=== PATIENT | female | born 1960 | race Hispanic/Latino ===

== ENCOUNTER 2017-04-16 06:40 | Emergency (ER) | payer BC ==
[2017-04-16 06:42] VITALS: BMI 23.1
[2017-04-16 06:56] VITALS: TEMP 97.5
[2017-04-16] MEDS ORDERED: Sodium Chloride 0.9% 1,000 ML IV STA (07:16)
[2017-04-16 07:52] LABS: BASO # 0.1 K/uL (0.0-0.2); EOS # 0.1 K/uL (0.0-0.7); EOS % 0.8 % (0.0-4.0); HEMATOCRIT 39.8 % (34.0-47.0); LYMPH # 3.1 K/uL (1.0-4.3); LYMPH % 40.4 % (20.0-40.0); MEAN CELL VOLUME 99.1 fl (81.0-99.0); MEAN CORPUSCULAR HEMOGLOBIN 32.6 pg (27.0-31.0); MEAN CORPUSCULAR HGB CONC 32.8 g/dL (33.0-37.0); MONO # 0.5 K/uL (0.0-0.8); MONO % 6.3 % (0.0-10.0); NEUT # 3.9 K/uL (1.8-7.0); NEUT % 51.5 % (50.0-75.0); NRBC % 0.1 % (0.0-0.0); WHITE BLOOD COUNT 7.6 K/uL (4.8-10.8)
--- NOTE | 2017-04-16 08:11 | ED PDOC ---
Hyperglycemia/Hypoglycemia Time Seen by Provider: 04/16/17 07:14 Chief Complaint (Nursing): High Blood Sugar Chief Complaint (Provider): High Blood Sugar History Per: Patient History/Exam Limitations: no limitations Onset/Duration Of Symptoms: Days (x1) Current Symptoms Are (Timing): Still Present Current Diabetic Medications: Insulin Associated Infectious Symptoms: Nausea. denies: Sore Throat, Vomiting, Diarrhea , Other (Chest pain, headache, fever) : The patient does not have any of the infectious symptoms listed except for those marked. Additional Complaint(s): Steffanie Puri is a 56 year old female, with a past medical history of diabetes , who presents to the emergency department complaining of high blood sugar associated with nausea onset since this morning. Patient states she took her medication last night but denies taking medication this morning since she usually waits to have a meal at work before taking it. She reports not feeling well this morning. She states her mouth was bitter and felt palpitations which prompted her visit to the ER. She denies any sore throat, fever, blood in urin, nausea, vomit, diarrhea, SOB, chest pain or headache. No further medical complaints. PMD: Ángel Jalloh Past Medical History Reviewed: Historical Data, Nursing Documentation, Vital Signs Vital Signs: Last Vital Signs Temp 97.5 F L 04/16/17 06:43 Pulse 83 04/16/17 06:43 Resp 18 04/16/17 06:43 BP 134/83 04/16/17 06:43 Pulse Ox 99 04/16/17 06:43 - Medical History PMH: Diabetes Denies: Chronic Kidney Disease - Surgical History Surgical History: Appendectomy, - Family History Family History: States: Unknown Family Hx - Social History Current smoker - smoking cessation education provided: No Alcohol: None Drugs: Denies - Home Medications Home Medications: Ambulatory Orders Medication Instructions Recorded Enalapril Maleate [Vasotec] 5 mg PO DAILY 04/16/17 Glimepiride [amaRYL] 2 mg PO BID 04/16/17 Sitagliptin Phos/Metformin HCl 1 each PO BID 04/16/17 [Janumet 50-1,000 mg Tablet] - Allergies Allergies/Adverse Reactions: Allergies Allergy/AdvReac Type Severity Reaction Status Date / Time No Known Allergies Allergy Verified 04/16/17 06:50 Review of Systems ROS Statement: Except As Marked, All Systems Reviewed And Found Negative Constitutional: Negative for: Fever ENT: Negative for: Throat Pain Cardiovascular: Positive for: Palpitations. Negative for: Chest Pain Respiratory: Negative for: Shortness of Breath Gastrointestinal: Negative for: Nausea, Vomiting, Diarrhea Genitourinary Female: Negative for: Hematuria Neurological: Negative for: Headache Physical Exam - Reviewed Nursing Documentation Reviewed: Yes Vital Signs Reviewed: Yes - Physical Exam Appears: Positive for: Well, Non-toxic, No Acute Distress Head Exam: Positive for: ATRAUMATIC, NORMAL INSPECTION, NORMOCEPHALIC Skin: Positive for: Normal Color, Warm, Dry Eye Exam: Positive for: EOMI, Normal appearance, PERRL ENT: Positive for: Normal ENT Inspection Neck: Positive for: Normal, Painless ROM, Supple Cardiovascular/Chest: Positive for: Regular Rate, Rhythm. Negative for: Murmur Respiratory: Positive for: Normal Breath Sounds. Negative for: Respiratory Distress Gastrointestinal/Abdominal: Positive for: Normal Exam, Bowel Sounds, Soft. Negative for: Tenderness, Guarding, Rebound Back: Positive for: Normal Inspection. Negative for: L CVA Tenderness, R CVA Tenderness Extremity: Positive for: Normal ROM. Negative for: Pedal Edema, Deformity, Swelling Neurologic/Psych: Positive for: Alert, Oriented. Negative for: Motor/Sensory Deficits - Laboratory Results Result Diagrams: 04/16/17 07:45 04/16/17 07:45 - ECG ECG Rhythm: Positive for: Sinus Rhythm (normal). Negative for: Nonspecific Changes Rate: 67 O2 Sat by Pulse Oximetry: 99 (RA) Pulse Ox Interpretation: Normal Medical Decision Making Medical Decision Making: Initial Impression: Hyperglycemia Initial Plan: --EKG --Basic Metabolic Panel --Urine dipstick --Chest two views (PA/LAT) [RAD] --NS IV 1,000 ml @ 1,000 mls/hr --reevaluation 0844 Chest X-Ray FINDINGS: LUNGS: No active pulmonary disease. PLEURA: No significant pleural effusion identified. No pneumothorax apparent. CARDIOVASCULAR: Normal. OSSEOUS STRUCTURES: No significant abnormalities. VISUALIZED UPPER ABDOMEN: Normal. OTHER FINDINGS: None. IMPRESSION: No active disease. Scribe Attestation: Documented by Jose Stein, acting as a scribe for Augusta Bauer MD Provider Scribe Attestation: All medical record entries made by the Scribe were at my direction and personally dictated by me. I have reviewed the chart and agree that the record accurately reflects my personal performance of the history, physical exam, medical decision making, and the department course for this patient. I have also personally directed, reviewed, and agree with the discharge instructions and disposition. 10.45a - patient stable since arrival. serum glucose concurrent with initial and followup chem sticks in the ER. Patient to be discharged with followup with Dr. Marycruz Jalloh Disposition - Clinical Impression Clinical Impression: Hyperglycemia due to type 2 diabetes mellitus - Patient ED Disposition Is Patient to be Admitted: No Doctor Will See Patient In The: Office Counseled Patient/Family Regarding: Diagnosis, Need For Followup - Disposition Referrals: Ángel Jalloh MD [Primary Care Provider] - [email or web address] (formerly [email or web address] Erin Banks [Outside] Disposition: Routine/Home Disposition Time: 10:45 Condition: STABLE Instructions: Diabetic Hyperglycemia (ED) Forms: [employer] ([place]) Print Language: BELARUSIAN - POA Present On Arrival: None
[2017-04-16 08:21] LABS: CALCIUM 8.8 mg/dL (8.4-10.2); CARBON DIOXIDE 24 mmol/L (22-30); CHLORIDE 102 mmol/L (98-107); GFR AFRICAN-AMERICAN > 60; GLUCOSE,RANDOM 223 mg/dL (65-105); SODIUM 136 mmol/l (132-148)
[2017-04-16 08:23] LABS: BLOOD UREA NITROGEN 10 mg/dl (7-17); POTASSIUM 4.2 MMOL/L (3.6-5.0)
--- NOTE | 2017-04-16 08:46 | RAD ---
HISTORY: hyperglycemia COMPARISON: No prior. TECHNIQUE: Chest PA and lateral FINDINGS: LUNGS: No active pulmonary disease. PLEURA: No significant pleural effusion identified. No pneumothorax apparent. CARDIOVASCULAR: Normal. OSSEOUS STRUCTURES: No significant abnormalities. VISUALIZED UPPER ABDOMEN: Normal. OTHER FINDINGS: None. IMPRESSION: No active disease.
[2017-04-16 11:28] VITALS: BP 129/81; PULSE 71; RESP 16; O2SAT 100
--- NOTE | 2017-04-17 10:42 | CARD ---
APPROVED REPORT EKG Measurement Heart [id number] <Conclusion> Normal sinus rhythm Normal ECG
== END 2017-04-16 11:27 | disposition home or self-care (01) ==
LOC: H.ER 06:40
DX: E11.65 Type 2 diabetes mellitus with hyperglycemia (principal)
CPT/HCPCS: 71020; 80048; 82948; 85025; 93005; 96360; 99283; J7040

== ENCOUNTER 2017-04-28 14:29 | Observation (INO) | payer BC ==
[2017-04-28 14:42] VITALS: BMI 21.6
[2017-04-28] MEDS ORDERED: Sodium Chloride 0.9% 1,000 ML IV STA ×3 (15:40→21:45)
--- NOTE | 2017-04-28 16:17 | ED PDOC ---
HPI: General Adult Time Seen by Provider: 04/28/17 15:22 Chief Complaint (Nursing): Dizziness/Lightheaded Chief Complaint (Provider): Lightheadedness History Per: Patient, Family History/Exam Limitations: no limitations Additional Complaint(s): Pt sent by PMD for evaluation of BP (80/30) at office today. Pt reports lightheadedness X 1 day, takes Enalapril for HTN. Also c/o R sided neck pain X 3 days, worse with movement. Denies fever, trauma, paresthesias, weakness, CHAN, CP, SOB, n/v. Past Medical History Reviewed: Nursing Documentation, Vital Signs Vital Signs: Last Vital Signs Temp 98.1 F 04/28/17 20:25 Pulse 71 04/28/17 20:25 Resp 18 04/28/17 20:25 BP 125/74 04/28/17 20:25 Pulse Ox 100 04/28/17 20:25 - Medical History PMH: Diabetes, HTN Denies: Chronic Kidney Disease - Surgical History Surgical History: Appendectomy, - Family History Family History: States: Unknown Family Hx - Living Arrangements Living Arrangements: With Family - Social History Current smoker - smoking cessation education provided: No Alcohol: None - Home Medications Home Medications: Ambulatory Orders Medication Instructions Recorded Enalapril Maleate [Vasotec] 5 mg PO DAILY 04/16/17 Glimepiride [amaRYL] 2 mg PO BID 04/16/17 Sitagliptin Phos/Metformin HCl 1 each PO BID 04/16/17 [Janumet 50-1,000 mg Tablet] - Allergies Allergies/Adverse Reactions: Allergies Allergy/AdvReac Type Severity Reaction Status Date / Time No Known Allergies Allergy Verified 04/28/17 14:40 Review of Systems Constitutional: Negative for: Fever, Chills Eyes: Negative for: Vision Change Cardiovascular: Negative for: Chest Pain, Palpitations Respiratory: Negative for: Cough, Shortness of Breath Gastrointestinal: Negative for: Nausea, Vomiting, Abdominal Pain, Diarrhea Genitourinary Female: Negative for: Dysuria, Hematuria Musculoskeletal: Positive for: Neck Pain, Shoulder Pain. Negative for: Arm Pain , Back Pain Skin: Negative for: Rash, Lesions Neurological: Positive for: Dizziness. Negative for: Weakness, Numbness, Incoordination, Change in Speech, Confusion, Seizures, Altered Mental Status, Headache Physical Exam - Reviewed Nursing Documentation Reviewed: Yes Vital Signs Reviewed: Yes - Physical Exam Appears: Positive for: Well, No Acute Distress Head Exam: Positive for: ATRAUMATIC, NORMAL INSPECTION Skin: Positive for: Normal Color, Warm, Dry Eye Exam: Positive for: Normal appearance, EOMI, PERRL Neck: Positive for: Supple. Negative for: Normal (TTP R neck along SCM), Decreased ROM, Limited ROM Cardiovascular/Chest: Positive for: Regular Rate, Rhythm Respiratory: Positive for: Normal Breath Sounds Gastrointestinal/Abdominal: Positive for: Normal Exam, Bowel Sounds, Soft. Negative for: Tenderness Back: Positive for: Normal Inspection. Negative for: L CVA Tenderness, R CVA Tenderness Extremity: Positive for: Normal ROM Neurologic/Psych: Positive for: Alert, rn residential II-XII, Oriented. Negative for: Motor/Sensory Deficits, Aphasia, Facial Droop - Laboratory Results Result Diagrams: 04/28/17 16:59 04/28/17 16:59 - ECG Interpretation Of ECG: NSR @ 77, no ST-T changes. O2 Sat by Pulse Oximetry: 100 Pulse Ox Interpretation: Normal - Radiology X-Ray: Read By Radiologist X-Ray Interpretation: No Acute Disease - Progress Re-evaluation Time: 19:45 Condition: Unchanged (BP 94/59, remains lightheaded.) Medical Decision Making Medical Decision Makin yo female with low BP by history and lightheadedness. - labs - EKG - CXR - CT head - orthostatics - IVF Accession No. : [id number] Patient Name / ID : CARLOS GONZALES / [id number] Exam Date : 04/28/2017 16:15:41 ( Approved ) Study Comment : Sex / Age : F / 56Y Creator : Arden Tolbert MD Dictator : Jacquard Card Cutter : Display Coordinator : Arden Tolbert MD Approver2 : Report Date : 04/28/2017 16:41:42 My Comment : PROCEDURE: CT HEAD WITHOUT CONTRAST. HISTORY: Dizziness COMPARISON: None available. TECHNIQUE: Axial computed tomography images were obtained through the head/brain without intravenous contrast. Radiation dose: Total exam DLP = 849.15 mGy-cm. This CT exam was performed using one or more of the following dose reduction techniques: Automated exposure control, adjustment of the mA and/or kV according to patient size, and/or use of iterative reconstruction technique. FINDINGS: HEMORRHAGE: No acute parenchymal, subarachnoid or extra-axial hemorrhage. . BRAIN: No evidence of large acute infarct. The ventricular and sulcal size are within range of normal for this patient's stated age. There are no extra-axial masses or collections identified on this noncontrast exam. VENTRICLES: No obstructive hydrocephalus. CALVARIUM: There are no acute calvarial fractures. . PARANASAL SINUSES: Unremarkable as visualized. No significant inflammatory changes. MASTOID AIR CELLS: Unremarkable as visualized. No inflammatory changes. OTHER FINDINGS: Orbits and contents grossly unremarkable. IMPRESSION: No acute intracranial hemorrhage. No evidence of large acute infarct. Disposition - Clinical Impression Clinical Impression: Hypotension, Lightheadedness - Disposition Disposition Time: 20:35 Condition: STABLE Forms: [employer] (French) - Pt Status Changed To: Hospital Disposition Of: Inpatient - Admit Certification Admit to Inpatient:: After my assessment, the patient will require hospitalization for at least two midnights. This is because of the severity of symptoms shown, intensity of services needed, and/or the medical risk in this patient being treated as an outpatient. - POA Present On Arrival: None
--- NOTE | 2017-04-28 16:40 | RAD ---
HISTORY: Dizziness. COMPARISON: Comparison chest 04/16/2017 theNo prior. FINDINGS: LUNGS: No active pulmonary disease. PLEURA: No significant pleural effusion identified, no pneumothorax apparent. CARDIOVASCULAR: Normal. OSSEOUS STRUCTURES: No significant abnormalities. VISUALIZED UPPER ABDOMEN: Normal. OTHER FINDINGS: None. IMPRESSION: No active disease.
--- NOTE | 2017-04-28 16:43 | CT ---
PROCEDURE: CT HEAD WITHOUT CONTRAST. HISTORY: Dizziness COMPARISON: None available. TECHNIQUE: Axial computed tomography images were obtained through the head/brain without intravenous contrast. Radiation dose: Total exam DLP = 849.15 mGy-cm. This CT exam was performed using one or more of the following dose reduction techniques: Automated exposure control, adjustment of the mA and/or kV according to patient size, and/or use of iterative reconstruction technique. FINDINGS: HEMORRHAGE: No acute parenchymal, subarachnoid or extra-axial hemorrhage. . BRAIN: No evidence of large acute infarct. The ventricular and sulcal size are within range of normal for this patient's stated age. There are no extra-axial masses or collections identified on this noncontrast exam. VENTRICLES: No obstructive hydrocephalus. CALVARIUM: There are no acute calvarial fractures. . PARANASAL SINUSES: Unremarkable as visualized. No significant inflammatory changes. MASTOID AIR CELLS: Unremarkable as visualized. No inflammatory changes. OTHER FINDINGS: Orbits and contents grossly unremarkable. IMPRESSION: No acute intracranial hemorrhage. No evidence of large acute infarct.
[2017-04-28 17:07] LABS: BASO # 0.1 K/uL (0.0-0.2); BASO % 0.6 % (0.0-2.0); EOS # 0.1 K/uL (0.0-0.7); EOS % 1.6 % (0.0-4.0); HEMATOCRIT 43.3 % (34.0-47.0); LYMPH # 2.7 K/uL (1.0-4.3); LYMPH % 33.6 % (20.0-40.0); MEAN CELL VOLUME 99.5 fl (81.0-99.0); MEAN CORPUSCULAR HEMOGLOBIN 32.9 pg (27.0-31.0); MEAN CORPUSCULAR HGB CONC 33.1 g/dL (33.0-37.0); MEAN PLATELET VOLUME 8.1 fl (7.2-11.7); MONO # 0.6 K/uL (0.0-0.8); MONO % 7.3 % (0.0-10.0); NEUT # 4.6 K/uL (1.8-7.0); NEUT % 56.9 % (50.0-75.0); NRBC % 0.1 % (0.0-0.0); RED CELL DISTRIBUTION WIDTH 13.4 % (11.5-14.5); WHITE BLOOD COUNT 8.2 K/uL (4.8-10.8)
[2017-04-28 17:13] LABS: RBC URINE 1 /hpf (0-3); URINE BILIRUBIN NEGATIVE (NEGATIVE); URINE BLOOD NEGATIVE (NEGATIVE); URINE COLOR STRAW (YELLOW); URINE GLUCOSE (UA) NEG (Normal); URINE KETONE NEGATIVE (NEGATIVE); URINE LEUKOCYTE ESTERASE NEG Leu/uL (Negative); URINE PROTEIN NEGATIVE (NEGATIVE); URINE UROBILINOGEN 0.2-1.0 mg/dL (0.2-1.0); WBC URINE < 1 /hpf (0-5)
[2017-04-28 17:47] LABS: ALB/GLOB RATIO 1.5 (1.0-2.1); ALKALINE PHOSPHATASE 58 U/L (38-126); ALT/SGPT 29 U/L (9-52); AST/SGOT 18 U/L (14-36); BILIRUBIN,TOTAL 0.4 mg/dl (0.2-1.3); BLOOD UREA NITROGEN 16 mg/dl (7-17); CALCIUM 9.8 mg/dL (8.4-10.2); CARBON DIOXIDE 23 mmol/L (22-30); CHLORIDE 104 mmol/L (98-107); GFR AFRICAN-AMERICAN > 60; GLUCOSE,RANDOM 136 mg/dL (65-105); POTASSIUM 4.5 MMOL/L (3.6-5.0); SODIUM 139 mmol/l (132-148); TOTAL PROTEIN 7.5 G/DL (6.3-8.2)
[2017-04-28] MEDS: Insulin Lispro (humaLOG) 100 Units/ml Inj SC SCH (23:33)
[2017-04-29 05:37] LABS: HEMATOCRIT 35.1 % (34.0-47.0); MEAN CELL VOLUME 100.1 fl (81.0-99.0); MEAN CORPUSCULAR HEMOGLOBIN 33.1 pg (27.0-31.0); MEAN CORPUSCULAR HGB CONC 33.1 g/dL (33.0-37.0); RED CELL DISTRIBUTION WIDTH 13.2 % (11.5-14.5); WHITE BLOOD COUNT 5.4 K/uL (4.8-10.8)
[2017-04-29 06:09] LABS: BLOOD UREA NITROGEN 13 mg/dl (7-17); CALCIUM 8.2 mg/dL (8.4-10.2); CARBON DIOXIDE 25 mmol/L (22-30); CHLORIDE 109 mmol/L (98-107); CHOLESTEROL 141 mg/dL (0-199); GFR AFRICAN-AMERICAN > 60; GLUCOSE,RANDOM 190 mg/dL (65-105); POTASSIUM 4.1 MMOL/L (3.6-5.0); SODIUM 139 mmol/l (132-148)
[2017-04-29] MEDS: Insulin Lispro (humaLOG) 100 Units/ml Inj SC SCH ×2 (06:47→13:30)
[2017-04-29] MEDS ORDERED: GlipiZIDE 10 mg SR Tab PO SCH (08:00)
[2017-04-29] MEDS ORDERED: Enoxaparin 40 mg Syringe SC SCH (09:00)
--- NOTE | 2017-04-29 15:33 | CP.PCM.HP ---
History of Present Illness - History of Present Illness History of Present Illness: CC. Referred by PCP for Hypotension HPI: Hector sent by PMD for evaluation of BP (80/30) at PCP office today. Pt reports lightheadedness X 1 day after started on Enalapril for DM. Also c/o R sided neck pain X 3 days, worse with movement. Denies fever, trauma, Paresthesias, weakness, CHAN, CP, SOB, n/v. Patient runs SBP about 100. Patient was bolused with IVF and D/C Enalapril. Present on Admission - Present on Admission Any Indicators Present on Admission: No History of DVT/PE: No History of Uncontrolled Diabetes: No Urinary Catheter: No Decubitus Ulcer Present: No Review of Systems - Review of Systems All systems: reviewed and no additional remarkable complaints except Past Patient History - Past Medical History & Family History Past Medical History?: Yes Past Family History: Reviewed and not pertinent - Past Social History Smoking Status: Never Smoked Alcohol: None Drugs: Denies - CARDIAC Hx Hypertension: Yes - PULMONARY Hx Respiratory Disorders: No - NEUROLOGICAL Hx Neurological Disorder: No - HEENT Hx HEENT Problems: Yes (GLASSES) - RENAL Hx Chronic Kidney Disease: No - ENDOCRINE/METABOLIC Hx Endocrine Disorders: Yes Hx Diabetes Mellitus Type 2: Yes - HEMATOLOGICAL/ONCOLOGICAL Hx Blood Disorders: No - INTEGUMENTARY Hx Dermatological Problems: No - MUSCULOSKELETAL/RHEUMATOLOGICAL Hx Falls: No - GASTROINTESTINAL Hx Gastrointestinal Disorders: Yes (ABDOMINAL PAIN) - GENITOURINARY/GYNECOLOGICAL Hx Genitourinary Disorders: Yes Hx Reproductive Disorders: Yes (UTERUS DAMAGED DURING D&C) - PSYCHIATRIC Hx Substance Use: No - SURGICAL HISTORY Hx Appendectomy: Yes Hx Hysterectomy: Yes - ANESTHESIA Hx Anesthesia: Yes Hx Anesthesia Reactions: Yes (N/V) Hx Malignant Hyperthermia: No Meds Home Medications: Home Medication List Medication Instructions Recorded Confirmed Type MetFORMIN [glucoPHAGE] 1,000 mg PO BID #60 tab 04/29/17 Rx Allergies/Adverse Reactions: Allergies Allergy/AdvReac Type Severity Reaction Status Date / Time No Known Allergies Allergy Verified 04/28/17 14:40 Physical Exam - Constitutional Appears: Well, No Acute Distress - Head Exam Head Exam: ATRAUMATIC, NORMAL INSPECTION, NORMOCEPHALIC - Eye Exam Eye Exam: EOMI, Normal appearance, PERRL Pupil Exam: NORMAL ACCOMODATION, PERRL - ENT Exam ENT Exam: Mucous Membranes Moist, Normal Exam - Neck Exam Neck exam: Positive for: Normal Inspection - Respiratory Exam Respiratory Exam: Clear to Auscultation Bilateral, NORMAL BREATHING PATTERN - Cardiovascular Exam Cardiovascular Exam: REGULAR RHYTHM, +S1, +S2 - GI/Abdominal Exam GI & Abdominal Exam: Normal Bowel Sounds, Soft. absent: Tenderness - Extremities Exam Extremities exam: Positive for: normal inspection - Back Exam Back exam: NORMAL INSPECTION - Neurological Exam Neurological exam: Alert, CN II-XII Intact, Normal Gait, Oriented x3, Reflexes Normal - Psychiatric Exam Psychiatric exam: Normal Affect, Normal Mood - Skin Skin Exam: Dry, Intact, Normal Color, Warm Results - Vital Signs Recent Vital Signs: Last Vital Signs Temp 98.5 F 04/29/17 12:00 Pulse 78 04/29/17 12:00 Resp 18 04/29/17 12:00 BP 109/69 04/29/17 12:00 Pulse Ox 100 04/29/17 12:00 - Labs Result Diagrams: 04/29/17 04:25 04/29/17 04:25 Labs: Laboratory Results - last 24 hr 04/28/17 04/28/17 04/28/17 16:28 16:59 16:59 WBC 8.2 RBC 4.35 Hgb 14.3 Hct 43.3 MCV 99.5 H MCH 32.9 H MCHC 33.1 RDW 13.4 Plt Count 216 MPV 8.1 Neut % (Auto) 56.9 Lymph % (Auto) 33.6 [place] % (Auto) 7.3 Eos % (Auto) 1.6 Baso % (Auto) 0.6 Neut # 4.6 Lymph # 2.7 [place] # 0.6 Eos # 0.1 Baso # 0.1 PT INR APTT Sodium 139 Potassium 4.5 Chloride 104 Carbon Dioxide 23 Anion Gap 17 BUN 16 Creatinine 0.6 L Est GFR ( Amer) > 60 Est GFR (Non-Af Amer) > 60 POC Glucose (mg/dL) 121 H Random Glucose 136 H Hemoglobin A1c Calcium 9.8 Total Bilirubin 0.4 AST 18 ALT 29 Alkaline Phosphatase 58 Troponin I < 0.0120 Total Protein 7.5 Albumin 4.6 Globulin 3.0 Albumin/Globulin Ratio 1.5 Triglycerides Cholesterol LDL Cholesterol Direct HDL Cholesterol Urine Color Urine Clarity Urine pH Ur Specific [place] Urine Protein Urine Glucose (UA) Urine Ketones Urine Blood Urine Nitrate Urine Bilirubin Urine Urobilinogen Ur Leukocyte Esterase Urine RBC (Auto) Urine Microscopic WBC 04/28/17 04/28/17 04/28/17 16:59 16:59 22:38 WBC RBC Hgb Hct MCV MCH MCHC RDW Plt Count MPV Neut % (Auto) Lymph % (Auto) [place] % (Auto) Eos % (Auto) Baso % (Auto) Neut # Lymph # [place] # Eos # Baso # PT 10.6 INR 1.0 APTT 27.0 Sodium Potassium Chloride Carbon Dioxide Anion Gap BUN Creatinine Est GFR ( Amer) Est GFR (Non-Af Amer) POC Glucose (mg/dL) 293 H Random Glucose Hemoglobin A1c Calcium Total Bilirubin AST ALT Alkaline Phosphatase Troponin I Total Protein Albumin Globulin Albumin/Globulin Ratio Triglycerides Cholesterol LDL Cholesterol Direct HDL Cholesterol Urine Color Straw Urine Clarity Clear Urine pH 6.0 Ur Specific [place] 1.006 Urine Protein Negative Urine Glucose (UA) Neg Urine Ketones Negative Urine Blood Negative Urine Nitrate Negative Urine Bilirubin Negative Urine Urobilinogen 0.2-1.0 Ur Leukocyte Esterase Neg Urine RBC (Auto) 1 Urine Microscopic WBC < 1 04/29/17 04/29/17 04/29/17 04:25 04:25 04:25 WBC 5.4 RBC 3.50 L Hgb 11.6 L D Hct 35.1 MCV 100.1 H MCH 33.1 H MCHC 33.1 RDW 13.2 Plt Count 178 MPV Neut % (Auto) Lymph % (Auto) [place] % (Auto) Eos % (Auto) Baso % (Auto) Neut # Lymph # [place] # Eos # Baso # PT INR APTT Sodium 139 Potassium 4.1 Chloride 109 H Carbon Dioxide 25 Anion Gap 9 L BUN 13 Creatinine 0.7 Est GFR ( Amer) > 60 Est GFR (Non-Af Amer) > 60 POC Glucose (mg/dL) Random Glucose 190 H Hemoglobin A1c 8.3 H Calcium 8.2 L Total Bilirubin AST ALT Alkaline Phosphatase Troponin I < 0.0120 Total Protein Albumin Globulin Albumin/Globulin Ratio Triglycerides 52 Cholesterol 141 LDL Cholesterol Direct 82 HDL Cholesterol 43 Urine Color Urine Clarity Urine pH Ur Specific [place] Urine Protein Urine Glucose (UA) Urine Ketones Urine Blood Urine Nitrate Urine Bilirubin Urine Urobilinogen Ur Leukocyte Esterase Urine RBC (Auto) Urine Microscopic WBC 04/29/17 04/29/17 04/29/17 05:32 10:58 12:30 WBC RBC Hgb Hct MCV MCH MCHC RDW Plt Count MPV Neut % (Auto) Lymph % (Auto) [place] % (Auto) Eos % (Auto) Baso % (Auto) Neut # Lymph # [place] # Eos # Baso # PT INR APTT Sodium Potassium Chloride Carbon Dioxide Anion Gap BUN Creatinine Est GFR ( Amer) Est GFR (Non-Af Amer) POC Glucose (mg/dL) 181 H 260 H Random Glucose Hemoglobin A1c Calcium Total Bilirubin AST ALT Alkaline Phosphatase Troponin I < 0.0120 Total Protein Albumin Globulin Albumin/Globulin Ratio Triglycerides Cholesterol LDL Cholesterol Direct HDL Cholesterol Urine Color Urine Clarity Urine pH Ur Specific [place] Urine Protein Urine Glucose (UA) Urine Ketones Urine Blood Urine Nitrate Urine Bilirubin Urine Urobilinogen Ur Leukocyte Esterase Urine RBC (Auto) Urine Microscopic WBC - EKG Data EKG Interpreted by: Myself EKG shows normal: Sinus rhythm, [place], Intervals, QRS complexes, ST-T waves Rate: Normal - Impressions Impression: CT Head: IMPRESSION: No acute intracranial hemorrhage. No evidence of large acute infarc - Imaging and Cardiology Chest x-ray Status: Report reviewed by me Additional comment: no Acute finding Assessment & Plan (1) Hypotension Assessment and Plan: Most Likely Meidcation Induced BP has been stable after IVF Bolus. Change admission to observation Status: Acute (2) Hyperglycemia due to type 2 diabetes mellitus Status: Chronic
[2017-04-29 15:50] VITALS: BP 119/67; PULSE 91; RESP 17; TEMP 98; O2SAT 98
--- NOTE | 2017-04-29 18:22 | CP.PCM.DIS ---
Provider - Provider Date of Admission: 04/28/17 20:35 Attending physician: Edna Crowell MD Time Spent in preparation of Discharge (in minutes): 20 Diagnosis - Discharge Diagnosis (1) Hypotension Status: Acute (2) Hyperglycemia due to type 2 diabetes mellitus Status: Chronic Hospital Course - Lab Results Lab Results: Most Recent Lab Values WBC 5.4 K/uL (4.8-10.8) 04/29/17 04:25 RBC 3.50 Mil/uL (3.80-5.20) L 04/29/17 04:25 Hgb 11.6 g/dL (12.0-16.0) L D 04/29/17 04:25 Hct 35.1 % (34.0-47.0) 04/29/17 04:25 MCV 100.1 fl (81.0-99.0) H 04/29/17 04:25 MCH 33.1 pg (27.0-31.0) H 04/29/17 04:25 MCHC 33.1 g/dL (33.0-37.0) 04/29/17 04:25 RDW 13.2 % (11.5-14.5) 04/29/17 04:25 Plt Count 178 K/uL (130-400) 04/29/17 04:25 MPV 8.1 fl (7.2-11.7) 04/28/17 16:59 Neut % (Auto) 56.9 % (50.0-75.0) 04/28/17 16:59 Lymph % (Auto) 33.6 % (20.0-40.0) 04/28/17 16:59 Placer % (Auto) 7.3 % (0.0-10.0) 04/28/17 16:59 Eos % (Auto) 1.6 % (0.0-4.0) 04/28/17 16:59 Baso % (Auto) 0.6 % (0.0-2.0) 04/28/17 16:59 Neut # 4.6 K/uL (1.8-7.0) 04/28/17 16:59 Lymph # 2.7 K/uL (1.0-4.3) 04/28/17 16:59 Placer # 0.6 K/uL (0.0-0.8) 04/28/17 16:59 Eos # 0.1 K/uL (0.0-0.7) 04/28/17 16:59 Baso # 0.1 K/uL (0.0-0.2) 04/28/17 16:59 PT 10.6 Seconds (9.8-13.1) 04/28/17 16:59 INR 1.0 (0.9-1.2) 04/28/17 16:59 APTT 27.0 Seconds (25.6-37.1) 04/28/17 16:59 Sodium 139 mmol/l (132-148) 04/29/17 04:25 Potassium 4.1 MMOL/L (3.6-5.0) 04/29/17 04:25 Chloride 109 mmol/L (98-107) H 04/29/17 04:25 Carbon Dioxide 25 mmol/L (22-30) 04/29/17 04:25 Anion Gap 9 (10-20) L 04/29/17 04:25 BUN 13 mg/dl (7-17) 04/29/17 04:25 Creatinine 0.7 mg/dl (0.7-1.2) 04/29/17 04:25 Est GFR ( Amer) > 60 04/29/17 04:25 Est GFR (Non-Af Amer) > 60 04/29/17 04:25 POC Glucose (mg/dL) 95 mg/dL (65-110) 04/29/17 16:01 Random Glucose 190 mg/dL (65-105) H 04/29/17 04:25 Hemoglobin A1c 8.2 % (4.2-6.5) H 04/29/17 12:10 Calcium 8.2 mg/dL (8.4-10.2) L 04/29/17 04:25 Total Bilirubin 0.4 mg/dl (0.2-1.3) 04/28/17 16:59 AST 18 U/L (14-36) 04/28/17 16:59 ALT 29 U/L (9-52) 04/28/17 16:59 Alkaline Phosphatase 58 U/L (38-126) 04/28/17 16:59 Troponin I < 0.0120 ng/mL (0.00-0.120) 04/29/17 12:30 Total Protein 7.5 G/DL (6.3-8.2) 04/28/17 16:59 Albumin 4.6 g/dL (3.5-5.0) 04/28/17 16:59 Globulin 3.0 gm/dL (2.2-3.9) 04/28/17 16:59 Albumin/Globulin Ratio 1.5 (1.0-2.1) 04/28/17 16:59 Triglycerides 52 mg/DL (0-149) 04/29/17 04:25 Cholesterol 141 mg/dL (0-199) 04/29/17 04:25 LDL Cholesterol Direct 82 mg/dL (0-129) 04/29/17 04:25 HDL Cholesterol 43 MG/DL (30-70) 04/29/17 04:25 Urine Color Straw (YELLOW) 04/28/17 16:59 Urine Clarity Clear (Clear) 04/28/17 16:59 Urine pH 6.0 (5.0-8.0) 04/28/17 16:59 Ur Specific [place] 1.006 (1.003-1.030) 04/28/17 16:59 Urine Protein Negative mg/dL (NEGATIVE) 04/28/17 16:59 Urine Glucose (UA) Neg mg/dL (Normal) 04/28/17 16:59 Urine Ketones Negative mg/dL (NEGATIVE) 04/28/17 16:59 Urine Blood Negative (NEGATIVE) 04/28/17 16:59 Urine Nitrate Negative (NEGATIVE) 04/28/17 16:59 Urine Bilirubin Negative (NEGATIVE) 04/28/17 16:59 Urine Urobilinogen 0.2-1.0 mg/dL (0.2-1.0) 04/28/17 16:59 Ur Leukocyte Esterase Neg [place]/uL (Negative) 04/28/17 16:59 Urine RBC (Auto) 1 /hpf (0-3) 04/28/17 16:59 Urine Microscopic WBC < 1 /hpf (0-5) 04/28/17 16:59 - Hospital Course Hospital Course: D/C Enalapril, and Encourage PO Hydration Discharge Exam - Head Exam Head Exam: ATRAUMATIC, NORMAL INSPECTION, NORMOCEPHALIC Discharge Plan - Discharge Medications Prescriptions: MetFORMIN [glucoPHAGE] 1,000 mg PO BID #60 tab - Follow Up Plan Condition: STABLE Disposition: HOME/ ROUTINE Instructions: Hypotension (DC), Dizziness (GEN)
--- NOTE | 2017-04-30 09:57 | CARD ---
APPROVED REPORT EXAM: Two-dimensional and M-mode echocardiogram with Doppler and color Doppler. Other Information Quality : ExcellentRhythm : NSR INDICATION Hypotension 2D DIMENSIONS IVSd0.72 (0.7-1.1cm)LVDd3.98 (3.9-5.9cm) LVOT Diameter1.78 (1.8-2.4cm)PWd0.79 (0.7-1.1cm) IVSs1.01 (0.8-1.2cm)LVDs2.90 (2.5-4.0cm) FS (%) 27.1 %PWs1.16 (0.8-1.2cm) M-Mode DIMENSIONS Left Atrium (MM)3.26 (2.5-4.0cm)IVSd0.99 (0.7-1.1cm) Aortic Root2.85 (2.2-3.7cm)LVDd4.24 (4.0-5.6cm) Aortic Cusp Exc.1.85 (1.5-2.0cm)PWd0.95 (0.7-1.1cm) IVSs1.39 cmFS (%) 38 % LVDs2.65 (2.0-3.8cm)PWs1.52 cm Mitral Valve MV E Tunjhyot14.0cm/sMV DECEL [id number] A Cbnngvmc46.0cm/s MV NUC81akE/A ratio1.1MVA (PHT)4.76cm2 TDI Lateral E' Peak V12.30cm/sMedial E' Peak V8.96cm/sE/Lateral E'7.0 E/Medial E'9.6 Tricuspid Valve TR Peak Lfxjxlql540qv/sRAP [id number] Peak Gr.14mmHg [id number] LEFT VENTRICLE The left ventricle is normal size. There is normal left ventricular wall thickness. The left ventricular function is normal. The left ventricular ejection fraction is 60% There is normal LV segmental wall motion. The left ventricular diastolic function is normal. No left ventricle thrombus noted on this study. There is no ventricular septal defect visualized. There is no left ventricular aneurysm. There is no mass noted in the left ventricle. RIGHT VENTRICLE The right ventricle is normal size. There is normal right ventricular wall thickness. The right ventricular systolic function is normal. ATRIA The left atrium size is normal. The right atrium size is normal. The interatrial septum is intact with no evidence for an atrial septal defect. AORTIC VALVE The aortic valve is normal in structure. No aortic regurgitation is present. There is no aortic valvular stenosis. There is no aortic valvular vegetation. MITRAL VALVE The mitral valve is normal in structure. There is no evidence of mitral valve prolapse. There is no mitral valve stenosis. There is no mitral valve regurgitation noted. TRICUSPID VALVE The tricuspid valve is normal in structure. There is no tricuspid valve regurgitation noted. There is no tricuspid valve prolapse or vegetation. There is no tricuspid valve stenosis. PULMONIC VALVE The pulmonary valve is normal in structure. There is no pulmonic valvular regurgitation. There is no pulmonic valvular stenosis. GREAT VESSELS The aortic root is normal in size. The ascending aorta is normal in size. The IVC is normal in size and collapses >50% with inspiration. PERICARDIAL EFFUSION The pericardium appears normal. There is no pleural effusion. <Conclusion> Normal Echocardiogram
--- NOTE | 2017-04-30 11:52 | CARD ---
APPROVED REPORT EKG Measurement Heart [id number] CO 132P58 [id number] <Conclusion> Normal sinus rhythm Normal ECG
== END 2017-04-29 19:09 | disposition home or self-care (01) ==
LOC: H.ER 14:29 → H.ERHOLD 20:35 → INTOOBSV 20:35 → H.TEL 22:51
PROVIDERS: ADMIT Internal Medicine; ATTEND Internal Medicine
DX: I95.9 Hypotension, unspecified (principal); E11.65 Type 2 diabetes mellitus with hyperglycemia; I10 Essential (primary) hypertension; M54.2 Cervicalgia
CPT/HCPCS: 36415; 70450; 71010; 80048; 80053; 80061; 81003; 82948; 83036; 84484; 85025; 85027; 85610; 85730; 93306; 99285; G0378; J1650; J7040

== ENCOUNTER 2018-09-09 04:41 | Emergency (ER) | payer BC ==
[2018-09-09 04:41] VITALS: BMI 21.6
[2018-09-09 04:58] VITALS: RESP 16; O2SAT 98
[2018-09-09] MEDS ORDERED: Sodium Chloride 0.9% 1,000 ML IV STA (05:15)
[2018-09-09 05:37] LABS: BASO % 0.4 % (0.0-2.0); EOS # 0.1 K/uL (0.0-0.7); EOS % 0.9 % (0.0-4.0); HEMOGLOBIN 12.9 g/dL (12.0-16.0); LYMPH # 1.3 K/uL (1.0-4.3); LYMPH % 9.8 % (20.0-40.0); MEAN CELL VOLUME 99.9 fl (81.0-99.0); MEAN CORPUSCULAR HEMOGLOBIN 33.4 pg (27.0-31.0); MEAN CORPUSCULAR HGB CONC 33.5 g/dL (33.0-37.0); MEAN PLATELET VOLUME 8.2 fl (7.2-11.7); MONO # 0.5 K/uL (0.0-0.8); MONO % 3.7 % (0.0-10.0); NEUT # 11.1 K/uL (1.8-7.0); NEUT % 85.2 % (50.0-75.0); PLATELET COUNT 183 K/uL (130-400); RBC 3.86 Mil/uL (3.80-5.20); RED CELL DISTRIBUTION WIDTH 13.2 % (11.5-14.5)
[2018-09-09 05:39] LABS: VENOUS BLOOD GAS BASE EXCESS 1.6 mmol/L (0.0-2.0); VENOUS BLOOD GAS PCO2 60 mmHg (40-60); VENOUS BLOOD GAS PO2 17 mm/Hg (30-55)
[2018-09-09 05:45] LABS: BLOOD UREA NITROGEN 18 mg/dl (7-17); CALCIUM 9.6 mg/dL (8.4-10.2); GFR NON-AFRICAN AMERICAN > 60
--- NOTE | 2018-09-09 05:47 | ED PDOC ---
HPI: Neurologic - General Time Seen by Provider: 09/09/18 04:45 Chief Complaint (Nursing): Dizziness/Lightheaded Chief Complaint (Provider): Dizziness/Lightheaded Source: patient Exam Limitations: no limitations - History of Present Illness Timing/Duration: 1-3 hours Associated Symptoms: nausea/vomiting, other (dizziness) Allergies/Adverse Reactions: Allergies No Known Allergies Allergy (Verified 04/28/17 14:40) Home Medications: Ambulatory Orders Glimepiride [amaRYL] 1 tab PO BID 09/09/18 Meclizine [Meclizine*] 25 mg PO Q6 #30 tab 09/09/18 Ondansetron ODT [Zofran ODT] 4 mg PO Q8 PRN #12 odt 09/09/18 Sitagliptin Phos/Metformin HCl [Janumet 50-1,000 mg Tablet] 1 tab PO BID 09/09/18 Additional Complaint(s): 57 year old female with a history of vertigo and diabetes presents tot he ED for evaluation of nausea and dizziness that awoke her from her sleep about 1 hour prior to arrival. Patient reports she proceeded to vomit 10 times. She states that she only has abdominal pain in the moment before she is going to vomit. Dizziness is described as "room spinning". It is worsened by movement and alleviating when laying down. Otherwise, denies diarrhea, fever, focal weakness in the extremities and neck stiffness. PMD: none provided Past Medical History Reviewed: Historical Data, Nursing Documentation, Vital Signs Vital Signs: Last Vital Signs Temp 97.5 F L 09/09/18 04:55 Pulse 69 09/09/18 04:55 Resp 16 09/09/18 04:55 BP 135/76 09/09/18 04:55 Pulse Ox 98 09/09/18 04:55 Primary Care Provider: Doctor,Conversion - Medical History PMH: Diabetes, HTN Denies: Chronic Kidney Disease - Surgical History Surgical History: Appendectomy, - Family History Family History: States: Unknown Family Hx - Home Medications Home Medications: Ambulatory Orders Medication Instructions Recorded Glimepiride [amaRYL] 1 tab PO BID 09/09/18 Meclizine [Meclizine*] 25 mg PO Q6 #30 tab 09/09/18 Ondansetron ODT [Zofran ODT] 4 mg PO Q8 PRN #12 odt 09/09/18 Sitagliptin Phos/Metformin HCl 1 tab PO BID 09/09/18 [Janumet 50-1,000 mg Tablet] - Allergies Allergies/Adverse Reactions: Allergies Allergy/AdvReac Type Severity Reaction Status Date / Time No Known Allergies Allergy Verified 04/28/17 14:40 Review of Systems ROS Statement: Except As Marked, All Systems Reviewed And Found Negative Constitutional: Negative for: Fever Gastrointestinal: Positive for: Nausea, Vomiting. Negative for: Diarrhea Musculoskeletal: Negative for: Neck Pain (or stiffness) Neurological: Positive for: Dizziness. Negative for: Weakness, Numbness Physical Exam - Reviewed Nursing Documentation Reviewed: Yes Vital Signs Reviewed: Yes - Physical Exam Appears: Positive for: Non-toxic, No Acute Distress Head Exam: Positive for: ATRAUMATIC, NORMAL INSPECTION, NORMOCEPHALIC Skin: Positive for: Normal Color, Warm, Dry Eye Exam: Positive for: EOMI, Normal appearance, PERRL Neck: Positive for: Normal, Painless ROM, Supple Cardiovascular/Chest: Positive for: Regular Rate, Rhythm. Negative for: Murmur Respiratory: Positive for: Normal Breath Sounds. Negative for: Respiratory Distress Gastrointestinal/Abdominal: Positive for: Normal Exam, Soft. Negative for: Tenderness Back: Positive for: Normal Inspection. Negative for: L CVA Tenderness, R CVA Tenderness Extremity: Positive for: Normal ROM (x 4). Negative for: Deformity Neurological/Psych: Positive for: Awake, Alert, Normal Tone, Oriented (x 3), Cerebellar Tests (negative), director of payroll II-XII (intact), Other (Dizziness is reproducible by moving head side to side). Negative for: Motor/Sensory Deficits, Facial Droop - Laboratory Results Result Diagrams: 09/09/18 05:33 09/09/18 05:33 Lab Results: pO2 17 mm/Hg (30-55) L 09/09/18 05:34 VBG pH 7.30 (7.32-7.43) L 09/09/18 05:34 VBG pCO2 60 mmHg (40-60) 09/09/18 05:34 VBG HCO3 24.1 mmol/L 09/09/18 05:34 VBG Total CO2 31.3 mmol/L (22-28) H 09/09/18 05:34 VBG O2 Sat (Calc) 28.0 % (40-65) L 09/09/18 05:34 VBG Base Excess 1.6 mmol/L (0.0-2.0) 09/09/18 05:34 VBG Potassium 4.6 mmol/L (3.6-5.2) 09/09/18 05:34 Sodium 134.0 mmol/L (132-148) 09/09/18 05:34 Chloride 102.0 mmol/L (98-107) 09/09/18 05:34 Glucose 308 mg/dL (65-105) H 09/09/18 05:34 Lactate 1.2 mmol/L (0.7-2.1) 09/09/18 05:34 FiO2 21.0 % 09/09/18 05:34 - ECG O2 Sat by Pulse Oximetry: 98 (RA) Pulse Ox Interpretation: Normal Medical Decision Making Medical Decision Makin:15 Impression: peripheral vertigo given that symptoms extinguish at rest Plan: --VBG --EKG --BMP --CBC --Glucose POC --Antivert 50 mg PO --NS IV 1,000 mls --Zofran 4 mg IV 06:35 On re-evaluation, patient reports complete resolution of medical complaints. Labs are within normal limits. She is able to walk without symptoms and is tolerating PO. Return precautions discussed. Follow up with PMD. Scribe Attestation: Documented by Pretty To, acting as a scribe Mary Beth Ochoa MD Provider Scribe Attestation: All medical record entries made by the Scribe were at my direction and personally dictated by me. I have reviewed the chart and agree that the record accurately reflects my personal performance of the history, physical exam, medical decision making, and the department course for this patient. I have also personally directed, reviewed, and agree with the discharge instructions and disposition. Disposition - Clinical Impression Clinical Impression: Vertigo - Patient ED Disposition Is Patient to be Admitted: No - Disposition Referrals: Myles Gallagher [Outside] Disposition: Routine/Home Disposition Time: 06:35 Condition: IMPROVED Prescriptions: Meclizine [Meclizine*] 25 mg PO Q6 #30 tab Ondansetron ODT [Zofran ODT] 4 mg PO Q8 PRN #12 odt PRN Reason: Nausea/Vomiting Instructions: Vertigo (a Type of Dizziness) Forms: [employer] ([place]) Print Language: CITIZEN OF [place]
[2018-09-09 06:31] LABS: PLATELET ESTIMATE NORMAL (NORMAL)
[2018-09-09 06:32] LABS: BANDS 4 % (0-2); EOSINOPHIL 1 % (0-7); LYMPHOCYTE 10 % (20-50); MONOCYTE 6 % (0-10); NEUTROPHIL 79 % (42-75); TOTAL CELLS COUNTED 100
[2018-09-09 06:47] VITALS: BP 126/78; PULSE 72; TEMP 98.2
--- NOTE | 2018-09-09 10:20 | CARD ---
APPROVED REPORT Date of service: 09/09/2018 EKG Measurement Heart [id number] DC 148P61 [id number] <Conclusion> Sinus rhythm with marked sinus arrhythmia Otherwise normal ECG
== END 2018-09-09 06:46 | disposition home or self-care (01) ==
LOC: H.ER 04:41
DX: R42 Dizziness and giddiness (principal); E11.9 Type 2 diabetes mellitus without complications; Z79.84 Long term (current) use of oral hypoglycemic drugs; H81.399 Other peripheral vertigo, unspecified ear; I10 Essential (primary) hypertension; Z79.899 Other long term (current) drug therapy
CPT/HCPCS: 80048; 82803; 82948; 85025; 93005; 96361; 96374; 99285; J2405; J7030